=== PATIENT | male | born 1965 | race Hispanic/Latino ===

== ENCOUNTER 2017-01-31 05:03 | Emergency (ER) | payer OTHER ==
[2017-01-31 05:32] VITALS: BP 163/103; TEMP 97.7; O2SAT 95
--- NOTE | 2017-01-31 06:13 | ED.PDOC ---
History of Present Illness - General Chief Complaint: Back Pain or Injury Stated Complaint: urine frequency, back pain, weakness, cramping Time Seen by Provider: 01/31/17 05:32 Source: patient, RN notes reviewed, Vital Signs reviewed - History of Present Illness Initial Comments: Patient is a 51 y/o male who has had problems with frequent urination for the past year. He has been waking up about 10 times a night to urinate. He has seen the urologist who has put him on Flomax. He has low back pain as well. Timing/Duration: getting worse, other - a year Severity: moderate Improving Factors: nothing Worsening Factors: nothing Associated Symptoms: weakness Allergies/Adverse Reactions: Allergies NO KNOWN ALLERGY Allergy (Verified 01/31/17 05:15) Home Medications: Ambulatory Orders Oxybutynin Chloride [Oxybutynin Chloride ER] 5 mg PO DAILY #30 tab 01/31/17 Review of Systems - Review of Systems Constitutional: States: weakness EENTM: States: no symptoms reported Respiratory: States: no symptoms reported Cardiology: States: no symptoms reported Gastrointestinal/Abdominal: States: no symptoms reported Genitourinary: States: frequency Musculoskeletal: States: back pain Skin: States: no symptoms reported Neurological: States: no symptoms reported Endocrine: States: increased urine Hematologic/Lymphatic: States: no symptoms reported All other Systems: Reviewed and Negative Past Medical History (General) - Patient Medical History Hx Seizures: No Hx Stroke: No Hx Dementia: No Hx Asthma: No Hx of COPD: No Hx Cardiac Disorders: No Hx Congestive Heart Failure: No Hx Pacemaker: No Hx Hypertension: Yes Hx Thyroid Disease: No Hx Diabetes: No Hx Gastroesophageal Reflux: No Hx Renal Disease: No Hx Cancer: No Hx of HIV: No Hx Hepatitis C: No Hx MRSA: No Surgical History: no surgical history - Vaccination History Hx Tetanus, Diphtheria Vaccination: No Hx Influenza Vaccination: Yes Hx Pneumococcal Vaccination: No Immunizations Up to Date: No - Social History Hx Tobacco Use: No Hx Chewing Tobacco Use: No Hx Alcohol Use: No Hx Substance Use: No Hx Substance Use Treatment: No Hx Depression: No Feels Threatened In Home Enviroment: No Feels Threatened In a Relationship: No Hx Physical Abuse: No Hx Emotional Abuse: No Hx Suspected Abuse: No Family Medical History - Family History Mother Family History: Unknown Living Status: Unknown Physical Exam - Physical Exam General Appearance: Alert, Comfortable, No apparent distress Ears, Nose, Throat: hearing grossly normal, normal ENT inspection Neck: supple Respiratory: lungs clear, normal breath sounds, no respiratory distress, no accessory muscle use Cardiovascular/Chest: regular rate, rhythm, no edema, no gallop, no murmur Gastrointestinal/Abdominal: normal bowel sounds, non tender, soft, no organomegaly Back Exam: normal inspection, no CVA tenderness, no vertebral tenderness Extremity: normal range of motion, non-tender, normal inspection, no pedal edema , no calf tenderness Neurologic: alert, normal mood/affect, oriented x 3 Skin Exam: normal color, warm/dry Progress - Results/Orders Results/Orders: 01/31/17 05:27 Temperature 97.7 F Pulse Rate [ 75 monitor] Respiratory 18 Rate Blood Pressure 163/103 [Left Arm] O2 Sat by Pulse 95 Oximetry Laboratory Results WBC 7.0 K/mm3 (4.8-10.8) 01/31/17 06:15 RBC 5.59 M/mm3 (4.70-6.10) 01/31/17 06:15 Hgb 16.2 gm/dL (14.0-18.0) 01/31/17 06:15 Hct 48.4 % (42.0-52.0) 01/31/17 06:15 MCV 86.6 fl (80.0-94.0) 01/31/17 06:15 MCH 28.9 pg (27.0-31.0) 01/31/17 06:15 MCHC 33.4 g/dL (33.0-37.0) 01/31/17 06:15 RDW 13.6 % (11.5-14.5) 01/31/17 06:15 Plt Count 227 K/mm3 (130-400) 01/31/17 06:15 MPV 8.8 fl (7.40-10.4) 01/31/17 06:15 Absolute Neuts (auto) 4.90 K/uL (1.8-6.8) 01/31/17 06:15 Absolute Lymphs (auto) 1.60 K/uL (1.0-3.4) 01/31/17 06:15 Absolute Monos (auto) 0.50 K/uL (0.2-0.8) 01/31/17 06:15 Absolute Eos (auto) 0.00 K/uL (0.0-0.4) 01/31/17 06:15 Absolute Basos (auto) 0.00 K/uL (0.0-0.1) 01/31/17 06:15 Neutrophils % 69.2 % (42.0-78.0) 01/31/17 06:15 Lymphocytes % 23.1 % (20.0-50.0) 01/31/17 06:15 Monocytes % 6.7 % (2.0-9.0) 01/31/17 06:15 Eosinophils % 0.4 % (1.0-5.0) L 01/31/17 06:15 Basophils % 0.6 % (0.0-2.0) 01/31/17 06:15 Sodium 141 mmol/L (135-145) 01/31/17 06:15 Potassium 3.5 mmol/L (3.6-5.0) L 01/31/17 06:15 Chloride 104 mmol/L (101-111) 01/31/17 06:15 Carbon Dioxide 28 mmol/L (21-31) 01/31/17 06:15 Anion Gap 12.5 (12-18) 01/31/17 06:15 BUN 10 mg/dL (7-18) 01/31/17 06:15 Creatinine 0.87 mg/dL (0.6-1.3) 01/31/17 06:15 BUN/Creatinine Ratio 11.5 (10-20) 01/31/17 06:15 Random Glucose 130 mg/dL (70-105) H 01/31/17 06:15 Serum Osmolality 282.1 mOsm/L (275-295) 01/31/17 06:15 Calcium 9.2 mg/dL (8.4-10.2) 01/31/17 06:15 Total Bilirubin 0.6 mg/dL (0.2-1.0) 01/31/17 06:15 AST 22 IU/L (10-42) 01/31/17 06:15 ALT 19 IU/L (10-60) 01/31/17 06:15 Alkaline Phosphatase 98 IU/L (42-121) 01/31/17 06:15 Serum Total Protein 7.4 gm/dL (6.4-8.2) 01/31/17 06:15 Albumin 4.4 g/dl (3.2-5.5) 01/31/17 06:15 Globulin 3.0 gm/dL (2.3-3.5) 01/31/17 06:15 Albumin/Globulin Ratio 1.5 (1.1-1.9) 01/31/17 06:15 Urine Color Yellow (Yellow) 01/31/17 05:15 Urine Appearance Clear (Clear) 01/31/17 05:15 Urine pH 6.5 (4.5-7.8) 01/31/17 05:15 Ur Specific [place] <= 1.005 (1.005-1.030) 01/31/17 05:15 Urine Protein Negative mg/dL 01/31/17 05:15 Urine Glucose (UA) Negative mg/dL (Negative) 01/31/17 05:15 Urine Ketones Negative mg/dL (NEGATIVE) 01/31/17 05:15 Urine Blood Negative (Negative) 01/31/17 05:15 Urine Nitrite Negative 01/31/17 05:15 Urine Bilirubin Negative (NEGATIVE) 01/31/17 05:15 Urine Urobilinogen 0.2 mg/dL (0.2-1.0) 01/31/17 05:15 Ur Leukocyte Esterase Negative (Negative) 01/31/17 05:15 Urine RBC 0 /hpf 01/31/17 05:15 Urine WBC 0 /hpf 01/31/17 05:15 Ur Epithelial Cells 0 /hpf 01/31/17 05:15 Urine Bacteria Rare 01/31/17 05:15 Urine Mucus Trace 01/31/17 05:15 Departure - Departure Clinical Impression: Overactive bladder Time of Disposition: 07:00 Disposition: Discharge to Home or Self Care Condition: Fair Departure Forms: ED Discharge - Pt. Copy, Patient Portal Self Enrollment Diet: resume usual diet Referrals: Kyler Mullins MD [Primary Care Provider] - 1-2 Weeks [place] PATRICIA [Referring] - 1-2 Weeks Prescriptions: Oxybutynin Chloride [Oxybutynin Chloride ER] 5 mg PO DAILY #30 tab Home Medications: Ambulatory Orders Oxybutynin Chloride [Oxybutynin Chloride ER] 5 mg PO DAILY #30 tab 01/31/17 Additional Instructions: Keep follow-up appointment with Dr. Patricia on February 25, 2017. Call his office if symptoms worsen. Follow up with your PCP for any symptoms that persist or ED if symptoms worsen.
== END 2017-01-31 07:12 | disposition home or self-care (01) ==
LOC: ER 05:03
DX: N32.81 Overactive bladder (principal); I10 Essential (primary) hypertension; Z79.899 Other long term (current) drug therapy

== ENCOUNTER 2017-02-22 23:26 | Emergency (ER) | payer OTHER ==
--- NOTE | 2017-02-22 23:49 | ED.PDOC ---
History of Present Illness - General Chief Complaint: General Stated Complaint: medication makes him feel strange Time Seen by Provider: 02/22/17 23:48 Source: patient, family Exam Limitations: language barrier - History of Present Illness Initial Comments: Patient presents three hours after he took his first Seroguel and says that it made him feel strange. He has not had dyspnea, hives, red skin, palpitations, nor swollen tongue. He just says it makes him feel "funny". No other complaints. Timing/Duration: 1-3 hours Severity: mild Improving Factors: nothing Worsening Factors: nothing Associated Symptoms: denies symptoms Allergies/Adverse Reactions: Allergies NO KNOWN ALLERGY Allergy (Verified 02/23/17 00:02) Home Medications: Ambulatory Orders Oxybutynin Chloride [Oxybutynin Chloride ER] 5 mg PO DAILY #30 tab 01/31/17 Review of Systems - Review of Systems Constitutional: States: no symptoms reported EENTM: States: no symptoms reported Respiratory: States: no symptoms reported Cardiology: States: no symptoms reported Gastrointestinal/Abdominal: States: no symptoms reported Genitourinary: States: no symptoms reported Musculoskeletal: States: no symptoms reported Skin: States: no symptoms reported Neurological: States: no symptoms reported Endocrine: States: no symptoms reported Hematologic/Lymphatic: States: no symptoms reported Past Medical History (General) - Patient Medical History Hx Seizures: No Hx Stroke: No Hx Dementia: No Hx Asthma: No Hx of COPD: No Hx Cardiac Disorders: No Hx Congestive Heart Failure: No Hx Pacemaker: No Hx Hypertension: Yes Hx Thyroid Disease: No Hx Diabetes: No Hx Gastroesophageal Reflux: No Hx Renal Disease: No Hx Cancer: No Hx of HIV: No Hx Hepatitis C: No Hx MRSA: No - Vaccination History Hx Tetanus, Diphtheria Vaccination: No Hx Influenza Vaccination: Yes Hx Pneumococcal Vaccination: No - Social History Hx Tobacco Use: No Hx Chewing Tobacco Use: No Hx Alcohol Use: No Hx Substance Use: No Hx Substance Use Treatment: No Hx Depression: No Hx Physical Abuse: No Hx Emotional Abuse: No Hx Suspected Abuse: No Family Medical History - Family History Mother Family History: Unknown Living Status: Unknown Physical Exam - Physical Exam General Appearance: Alert Ears, Nose, Throat: normal ENT inspection Neck: non-tender, full range of motion, supple, normal inspection Respiratory: lungs clear Cardiovascular/Chest: regular rate, rhythm Gastrointestinal/Abdominal: normal bowel sounds, non tender, soft Back Exam: normal inspection, no CVA tenderness Extremity: normal range of motion, non-tender, normal inspection Neurologic: acoustic intelligence specialist II-XII nml as tested, no motor/sensory deficits, alert Skin Exam: normal color Lymphatic: no adenopathy Progress - Progress Progress: 02/23/17 00:08 There is no evidence that this is an allergy. It is likely that the patient may be suffering a mild side effect of the medication. Departure - Departure Clinical Impression: Medication adverse effect Disposition: Discharge to Home or Self Care Condition: Good Diet: resume usual diet Activity: increase activity as tolerated Referrals: Kyler Mullins MD [Primary Care Provider] - 1-2 Weeks Home Medications: Ambulatory Orders Oxybutynin Chloride [Oxybutynin Chloride ER] 5 mg PO DAILY #30 tab 01/31/17 Additional Instructions: Call your primary care doctor in the morning for advice regarding your medications.
[2017-02-23 00:11] VITALS: TEMP 98.1
[2017-02-23 00:24] VITALS: BP 134/86; O2SAT 96
== END 2017-02-23 00:30 | disposition home or self-care (01) ==
LOC: ER 23:26
DX: T43.595A Adverse effect of other antipsychotics and neuroleptics, initial encounter (principal); I10 Essential (primary) hypertension; Y92.9 Unspecified place or not applicable

== ENCOUNTER 2018-11-24 23:22 | Observation (INO) | payer SELFPAY ==
[2018-11-24] MEDS ORDERED: NITROGLYCERIN 0.4 MG 25 EA TAB SL ONE (23:46)
--- NOTE | 2018-11-24 23:53 | ED.PDOC ---
History of Present Illness - General Chief Complaint: Chest Pain/VT Time Seen by Provider: 11/24/18 23:41 Source: patient Exam Limitations: no limitations - History of Present Illness Initial Comments: AT 23 HRS HE WAKES UP WITH SEVERE CHEST PAIN, LIKE A SERIOUS CRAMP ASSOCIATED WITH SOB, THE PAIN DOUBLED HIM OVER AND HE ELECTED TO COME TO THE ED. HE HAS HYPERTENSION-UNTREATED AND ON ARRIVAL HIS BP WAS 244/157. HE IS A NON SMOKER. Allergies/Adverse Reactions: Allergies NO KNOWN ALLERGY Allergy (Verified 11/24/18 23:47) Home Medications: Ambulatory Orders Oxybutynin Chloride [Oxybutynin Chloride ER] 5 mg PO DAILY #30 tab 01/31/17 Review of Systems - Review of Systems Constitutional: States: malaise, weakness EENTM: States: no symptoms reported Respiratory: States: short of breath Cardiology: States: chest pain Gastrointestinal/Abdominal: States: nausea Genitourinary: States: no symptoms reported Musculoskeletal: States: no symptoms reported Skin: States: no symptoms reported Neurological: States: no symptoms reported Endocrine: States: no symptoms reported Hematologic/Lymphatic: States: no symptoms reported Past Medical History (General) - Patient Medical History Hx Seizures: No Hx Stroke: No Hx Dementia: No Hx Asthma: No Hx of COPD: No Hx Cardiac Disorders: No Hx Congestive Heart Failure: No Hx Pacemaker: No Hx Hypertension: Yes Hx Thyroid Disease: No Hx Diabetes: No Hx Gastroesophageal Reflux: No Hx Renal Disease: No Hx Cancer: No Hx of HIV: No Hx Hepatitis C: No Hx MRSA: No Surgical History: no surgical history - Vaccination History Hx Tetanus, Diphtheria Vaccination: No Hx Influenza Vaccination: No Hx Pneumococcal Vaccination: No - Social History Hx Tobacco Use: No Hx Chewing Tobacco Use: No Hx Alcohol Use: No Hx Substance Use: No Hx Substance Use Treatment: No Hx Depression: No Hx Physical Abuse: No Hx Emotional Abuse: No Hx Suspected Abuse: No Family Medical History - Family History Mother Family History: Unknown Living Status: Unknown Physical Exam - Physical Exam General Appearance: Alert, Obvious distress, Well Developed, Well Groomed, Well Hydrated Eyes, Ears, Nose, Throat Exam: PERRL/EOMI, normal ENT inspection Neck: non-tender, supple Respiratory: lungs clear, normal breath sounds, no respiratory distress, no accessory muscle use Cardiovascular/Chest: normal peripheral pulses, no edema, no JVD, no murmur Peripheral Pulses: radial,right: 2+, radial,left: 2+ Gastrointestinal/Abdominal: normal bowel sounds, non tender, soft, no organomegaly Rectal Exam: deferred Extremity: normal range of motion Neurologic: no motor/sensory deficits, oriented x 3 Progress - Progress Progress: 11/24/18 23:56 EKG: HR OF 66, MD INTERVAL OF 188, QTC OF 448, AXES OF 55, IMPRESSION: SINUS RHYTHM, NO ACUTE INJURY PATTERN 11/25/18 03:03 NO FURTHER CHEST PAIN. BP 160 SYSTOLIC. THE MARKERS X 2 ARE NEGATIVE. 11/25/18 03:13 CASE DISCUSSED WITH LAURA HAYWOOD-WILL ADMIT - Results/Orders Results/Orders: 11/25/18 00:15 EKG STAT Laboratory Results WBC 8.1 K/mm3 (4.8-10.8) 11/24/18 23:49 RBC 5.17 M/mm3 (4.70-6.10) 11/24/18 23:49 Hgb 15.0 gm/dL (14.0-18.0) 11/24/18 23:49 Hct 45.3 % (42.0-52.0) 11/24/18 23:49 MCV 87.7 fl (80.0-94.0) 11/24/18 23:49 MCH 29.1 pg (27.0-31.0) 11/24/18 23:49 MCHC 33.1 g/dL (33.0-37.0) 11/24/18 23:49 RDW 13.9 % (11.5-14.5) 11/24/18 23:49 Plt Count 231 K/mm3 (130-400) 11/24/18 23:49 MPV 8.7 fl (7.40-10.4) 11/24/18 23:49 Absolute Neuts (auto) 5.20 K/uL (1.8-6.8) 11/24/18 23:49 Absolute Lymphs (auto) 2.00 K/uL (1.0-3.4) 11/24/18 23:49 Absolute Monos (auto) 0.50 K/uL (0.2-0.8) 11/24/18 23:49 Absolute Eos (auto) 0.50 K/uL (0.0-0.4) H 11/24/18 23:49 Absolute Basos (auto) 0.10 K/uL (0.0-0.1) 11/24/18 23:49 Neutrophils % 63.3 % (42.0-78.0) 11/24/18 23:49 Lymphocytes % 24.1 % (20.0-50.0) 11/24/18 23:49 Monocytes % 5.7 % (2.0-9.0) 11/24/18 23:49 Eosinophils % 6.2 % (1.0-5.0) H 11/24/18 23:49 Basophils % 0.7 % (0.0-2.0) 11/24/18 23:49 PT 10.0 SECONDS (9.0-10.9) 11/24/18 23:49 INR 1.00 (0.9-1.15) 11/24/18 23:49 PTT (SP) 22.4 SECONDS (21.8-31.6) 11/24/18 23:49 Sodium 139 mmol/L (135-145) 11/24/18 00:30 Potassium 3.5 mmol/L (3.6-5.0) L 11/24/18 00:30 Chloride 102 mmol/L (101-111) 11/24/18 00:30 Carbon Dioxide 29 mmol/L (21-31) 11/24/18 00:30 Anion Gap 11.5 (12-18) L 11/24/18 00:30 BUN 16 mg/dL (7-18) 11/24/18 00:30 Creatinine 0.87 mg/dL (0.6-1.3) 11/24/18 00:30 BUN/Creatinine Ratio 18.4 (10-20) 11/24/18 00:30 Random Glucose 147 mg/dL (70-105) H 11/24/18 00:30 Serum Osmolality 281.4 mOsm/L (275-295) 11/24/18 00:30 Calcium 8.6 mg/dL (8.4-10.2) 11/24/18 00:30 Total Bilirubin 0.5 mg/dL (0.2-1.0) 11/24/18 00:30 AST 26 IU/L (10-42) 11/24/18 00:30 ALT 21 IU/L (10-60) 11/24/18 00:30 Alkaline Phosphatase 178 IU/L (42-121) H 11/24/18 00:30 Troponin I < 0.02 ng/mL (0.01-0.05) 11/25/18 02:04 Serum Total Protein 7.2 gm/dL (6.4-8.2) 11/24/18 00:30 Albumin 4.1 g/dl (3.2-5.5) 11/24/18 00:30 Globulin 3.1 gm/dL (2.3-3.5) 11/24/18 00:30 Albumin/Globulin Ratio 1.3 (1.1-1.9) 11/24/18 00:30 Departure - Departure Clinical Impression: Accelerated hypertension Chest pain Qualifiers: Chest pain type: chest pain due to myocardial ischemia Ischemic chest pain type: stable angina pectoris Qualified Code(s): I20.8 - Other forms of angina pectoris Time of Disposition: 03:06 Disposition: Admit Patient Referrals: Kyler Mullins MD [Primary Care Provider] - 1-2 Weeks Home Medications: Ambulatory Orders Oxybutynin Chloride [Oxybutynin Chloride ER] 5 mg PO DAILY #30 tab 01/31/17 Critical Care Note - Critical Care Note Total Time (mins): 45 Comments: CRITICAL EVENT: CHEST PAIN, CRITICAL FINDINGS: ACCELERATED HTN, CRITICAL TIME: 45 MINUTES. ACTIONS: BP AND CP CONTROL/ ADMISSION TO THE HOSPITAL. Decision To Admit - Decistion To Admit Decision to Admit Date: 11/25/18 Decision to Admit Time: 03:05
[2018-11-24] MEDS: NITROGLYCERIN 0.4 MG 25 EA TAB SL ONE (23:55)
[2018-11-25] MEDS: NITROGLYCERIN 0.4 MG 25 EA TAB SL ONE (00:05)
--- NOTE | 2018-11-25 00:14 | RAD ---
EXAM: AP CHEST RADIOGRAPH CLINICAL INDICATION: Acute chest pain. COMPARISON: No comparisons are available. FINDINGS: Cardiac size and pulmonary vasculature are normal. Lungs are clear. No pleural effusions. No pneumothorax, pneumomediastinum or free peritoneal gas. No hilar or mediastinal lymphadenopathy. No mediastinal widening. Bones are intact on this single view. IMPRESSION: Normal portable AP chest radiograph. Electronically signed by: Cristopher Littlejohn MD 11/25/2018 12:11 AM OUTSOLE BEVELER
[2018-11-25] MEDS ORDERED: NITROGLYCERIN 0.4 MG/HR PATCH TOP ONE (04:14)
[2018-11-25] MEDS ORDERED: SODIUM CHLORIDE 0.9% (FLUSH) 10 ML SYG IV PRN (07:49)
[2018-11-25] MEDS ORDERED: ACETAMINOPHEN 325 MG TAB PO PRN (07:49)
[2018-11-25] MEDS ORDERED: amLODIPine BESYLATE 5 MG TAB PO ONE (07:54)
[2018-11-25] MEDS ORDERED: IV SET AND CAP CHANGE INJ INJ SCH (08:00)
[2018-11-25] MEDS ORDERED: LISINOPRIL 10 MG TAB PO SCH (09:00)
[2018-11-25 10:47] VITALS: BP 150/78; TEMP 98.6; O2SAT 96
[2018-11-25] MEDS ORDERED: POTASSIUM CHLORIDE 20 MEQ TAB PO ONE (10:55)
--- NOTE | 2018-11-25 21:16 | SSS ---
SUPERVISING PHYSICIAN: Santiago Piedra M.D. ADMITTING DIAGNOSIS: 1. Chest pain with no acute findings of myocardial infarction or ischemic changes with cardiac enzymes being negative times 3 as well as EKGs, likely secondary to hypertensive urgency. 2. Hypertensive urgency not on any current antihypertensives requiring initiation of antihypertensives, continuing to show good control prior to discharge. 3. Poor medical compliance with a history of hypertension failing to continue with medication regimen. DISCHARGE DIAGNOSIS: 1. Chest pain with no acute findings of myocardial infarction or ischemic changes with cardiac enzymes being negative times 3 as well as EKGs, likely secondary to hypertensive urgency. 2. Hypertensive urgency not on any current antihypertensives requiring initiation of antihypertensives, continuing to show good control prior to discharge. 3. Poor medical compliance with a history of hypertension failing to continue with medication regimen. HISTORY OF PRESENT ILLNESS: Mr. Lofton is a 53 year-old male patient that presented to the [facility] last night after he awoke with cramp-like chest pains but denied any nausea, vomiting or diaphoresis. He presented to the [facility] where he was found to be quite hypertensive with initial blood pressure of 244/157. After he was started on Nitro patch, blood pressure was 139/86. The patient was no longer having any chest pains. He was given aspirin. He was monitored in the [facility] and has serial enzymes for troponins, however given the patient's blood pressure and symptoms, Dr. Catherine requested the patient be admitted for help with control of his blood pressure and further rule out of acute myocardial infarction. PAST MEDICAL HISTORY: 1. Hypertension not treated. PAST SURGICAL HISTORY: No surgical history listed. CURRENT MEDICATIONS: No chronic medications. ALLERGIES: NO KNOWN DRUG ALLERGIES. FAMILY HISTORY: Both parents are currently alive and all healthy. He has 4 brothers who are all healthy with 3 children who are all healthy. No reported cardiovascular disease. SOCIAL HISTORY: The patient is single. Lives in [place]. Works in the oil field. Does not drink and does not smoke and does not use any illicit drugs. PRIMARY CARE PHYSICIAN: Dr. Mullins. REVIEW OF SYSTEMS: GENERAL: The patient on admission to the Medical/Surgical floor appeared to be in no acute distress. Well hydrated and well groomed. HEENT: Tympanic membranes were clear bilaterally. Oropharynx was pink and moist without any lesions. NECK: Supple, non-tender. Full range of motion. No jugular venous distention. CHEST: Lungs are clear to auscultation without any rhonchi, wheezing or rales. HEART: Regular rate and rhythm with no appreciable murmurs, gallops, or rubs. ABDOMEN: Soft, non-tender. Positive bowel sounds. EXTREMITIES: Without any clubbing, cyanosis or edema. NEUROLOGIC: He was alert and oriented times three. LABORATORY: CBC showed to be within normal limits with white count 8,100. Coagulation studies showed normal PT and PTT. Chemistries showed a mild hypokalemia with potassium 3.5. BUN 16, creatinine 0.87. Liver functions all showed to be within normal limits. Troponins times 3 sets were less than 0.02. TSH was normal at 1. Lipid panel showed 18 triglycerides, cholesterol 105, with LDH of 43 and HDL of 51. Urinalysis showed to be within normal limits. Toxicology screen was negative for all substances tested. RADIOLOGY: Chest x-ray in the [facility] prior to admission per radiology interpretation was without any acute findings. EKG initially on admission for 12-lead showed a heart rate of 66, no IL interval. Sinus rhythm. No acute injury pattern. Followup EKG prior to discharge showed no changes compared to initial EKG. HOSPITAL COURSE: Mr. Lofton was admitted in the [facility] for chest pain secondary to uncontrolled hypertension. He was able to get control of his blood pressure with Nitro in the E. [facility] and no longer having chest pains. His workup showed negative troponins. No concerning injury patterns on EKGs. He was admitted on the fire safety director of 2018 for continued workup. He had no recurrence of pain. He was started on Nitro patch at 0.4 mg as well as Lisinopril 10 mg and aspirin. He was ambulated after taken of the Nitro. He had good control of his blood pressure. Was no longer having chest pains or shortness of breath. Blood pressure after Nitro was taken off and he ambulated, was showing at 150/78, satting 96%, respirations 20 and temperature 98.6. PHYSICAL EXAMINATION: GENERAL: The patient was without any obvious acute distress. CHEST: Clear to auscultation. HEART: Regular rate and rhythm. ABDOMEN: Soft, non-tender. Positive bowel sounds. EXTREMITIES: Without any clubbing, cyanosis or edema. NEUROLOGIC: He was alert and oriented times three. The patient was showing to be clinically stable and was felt well enough to continue with outpatient management. ASSESSMENT: 1. Chest pain with no acute findings of myocardial infarction or ischemic changes with cardiac enzymes being negative times 3 as well as EKGs, likely secondary to hypertensive urgency. 2. Hypertensive urgency not on any current antihypertensives requiring initiation of antihypertensives, continuing to show good control prior to discharge. 3. Poor medical compliance with a history of hypertension failing to continue with medication regimen. PLAN: The patient is going to be started on Lisinopril 10 mg daily as well as Hydrochlorothiazide 12.5 mg and will need followup with Dr. Mullins, his primary care provider. He was instructed to return to the hospital should he have any concerning symptoms or return of his chest pains. He will need a full cardiac workup, stress test and echocardiogram in the near future which can be arranged through Dr. Mullins's office. He is encouraged to take his medications as directed, not to take himself off of his hypertensive medications as he did in the past. Diet was low fat diet. Activity is to increase as tolerated. All medications were prescribed and called in to [facility]. He was again provided extensive education on managing blood pressure and signs and symptoms of chest pains. DISPOSITION: The patient was discharged home. Condition at discharge was stable and improved. #[id number] MTDD
== END 2018-11-25 13:30 | disposition home or self-care (01) ==
LOC: ER 23:22 → MS 11-25 03:45
PROVIDERS: ADMIT Nurse Practitioner Family; ATTEND Nurse Practitioner Family
DX: I16.0 Hypertensive urgency (principal); I10 Essential (primary) hypertension; R07.89 Other chest pain; R06.02 Shortness of breath; Z91.14 Patient's other noncompliance with medication regimen